=== PATIENT | female | born 1945 | race African-American/Black ===

== ENCOUNTER 2019-01-31 08:39 | Inpatient (IN) ==
[2019-01-30 09:46] LABS: URINE SOURCE VOIDED
[2019-01-30 09:51] LABS: BILIRUBIN URINE NEGATIVE (NEGATIVE); BLOOD URINE NEGATIVE (NEGATIVE); COLOR YELLOW; GLUCOSE URINE NEGATIVE (NEGATIVE); KETONE URINE NEGATIVE (NEGATIVE); LEUKOCYTES URINE MODERATE (NEGATIVE); NITRITE URINE NEGATIVE (NEGATIVE); PH URINE 5.5; PROTEIN URINE TRACE mg/dL (NEGATIVE); SP GRAVITY URINE 1.015; TURBIDITY URINE HAZY (CLEAR); UROBILINOGEN URINE NORMAL (NORMAL)
[2019-01-30 09:52] LABS: BASO# 0.01 X1000 (0.0-0.2); BASO% 0.2 % (0.0-0.8); EOS# 0.05 X1000 (0.0-0.7); EOS% 0.9 % (0.0-10.0); HEMATOCRIT 38.5 % (37.0-47.0); HEMOGLOBIN 12.5 g/dL (12.0-16.0); IMM GRAN# 0.02 X1000 (0.0-0.04); IMM GRAN% 0.4 % (0.0-0.5); LYMPH# 2.25 X1000 (1.2-3.4); LYMPH% 39.9 % (20.5-51.1); MCH 30.9 PG (27-31); MCHC 32.5 g/dL (33-37); MCV 95.3 FL (81-99); MONO# 0.32 X1000 (0.11-0.59); MONO% 5.7 % (1.7-9.3); MPV 9.8 FL (7.4-10.4); NEUT# 2.99 X1000 (1.4-6.5); NEUT% 52.9 % (42.2-75.2); PLT 209 X1000 (130-400); RBC 4.04 XMIL (4.2-5.4); RDW 15.5 % (11.5-14.5); WBC 5.64 X1000 (4.8-10.8)
[2019-01-30 09:53] LABS: UR EPITHELIAL CELLS <10 /HPF (<10); URINE BACTERIA 4+ /HPF; URINE RBC <10 /HPF (<10); URINE WBC TNTC /HPF (<10)
--- NOTE | 2019-01-30 10:03 | Diag Imaging Result Doc PS360 ---
EXAM: CHEST-2 VIEWS 01/30/2019 HISTORY: PAT TECHNIQUE: PA and lateral chest COMMENT: There is no evidence of acute cardiac or pulmonary disease. Compared to 10/14/2017 there has been no significant change in the appearance of the chest. IMPRESSION: No evidence of acute disease. Electronically signed by Alcon Chaney 01/30/2019 10:00 AM
[2019-01-30 10:40] LABS: AGAP 8; ALB/GLOB RATIO 1.2; ALKALINE PHOSPHATASE 112 U/L (32-104); BUN 6 mg/dL (8-22); CALCIUM 9.7 mg/dL (8.8-10.2); CHLORIDE 106 mmol/L (98-107); COSMO 282; CREATININE 0.7 mg/dL (0.5-0.9); ESTIMATED GFR > 60; GLUCOSE 152 mg/dL (70-104); GOT 20 U/L (10-30); GPT 27 U/L (10-36); POTASSIUM 4.3 mmol/L (3.5-5.1); SODIUM 141 mmol/L (136-145); TCO2 27 mmol/L (25-35); TOTAL BILIRUBIN 0.38 mg/dL (0.20-1.00); TOTAL PROTEIN 7.3 g/dL (6.3-8.3)
--- NOTE | 2019-01-30 11:08 | EKG Report ---
Test Performed on : 01/30/2019 09:25:27 AM Test Reason : PAT Blood Pressure : / mmHG Vent. Rate : 070 BPM Atrial Rate : 070 BPM P-R Int : 164 ms QRS Dur : 082 ms QT Int : 378 ms P-R-T Axes : 075 041 054 degrees QTc Int : 408 ms Sinus rhythm. with premature supraventricular complexes. Possible Left atrial enlargement Borderline ECG When compared with ECG of 29-JAN-2019 08:28, premature supraventricular complexes. are now present Confirmed by Corey DREW, Caio ([id number]) on 01/30/2019 6:06:05 PM
[2019-01-31] MEDS ORDERED: ENTEREG ONE (09:02)
[2019-01-31] MEDS ORDERED: MEFOXIN 1 GM/D5W 1 GM/50 ML IVPB ONE (09:03)
[2019-01-31] MEDS ORDERED: LR 1,000 ML ONE (09:04)
[2019-01-31] MEDS ORDERED: VALIUM ONE (09:08)
[2019-01-31] MEDS ORDERED: XYLOCAINE-MPF 2% ONE ×2 (09:29→09:32)
[2019-01-31] MEDS ORDERED: NORCURON ONE (09:29)
[2019-01-31] MEDS ORDERED: SODIUM CHLORIDE 0.9% 10 ML ONE (09:29)
[2019-01-31] MEDS ORDERED: QUELICIN (DOSE) ONE (09:30)
[2019-01-31] MEDS ORDERED: DIPRIVAN 1% ONE (09:30)
[2019-01-31] MEDS ORDERED: FENTANYL ONE (09:31)
[2019-01-31] MEDS ORDERED: FLAGYL 1000 MG/NS 1,000 MG/200 ML IVPB IV ONE (10:00)
[2019-01-31] MEDS ORDERED: ROBINUL ONE (11:50)
[2019-01-31 11:54] LABS: URINE SOURCE CATH
[2019-01-31] MEDS ORDERED: DECADRON ONE (11:55)
[2019-01-31] MEDS ORDERED: ZOFRAN ONE (11:55)
[2019-01-31] MEDS ORDERED: BRIDION ONE (11:59)
[2019-01-31] MEDS ORDERED: OFIRMEV 1000 MG/ISOTONIC SOLN 1,000 MG/100 ML BOTTLE ONE (12:00)
[2019-01-31 12:05] LABS: BILIRUBIN URINE NEGATIVE (NEGATIVE); BLOOD URINE NEGATIVE (NEGATIVE); COLOR STRAW; GLUCOSE URINE NEGATIVE (NEGATIVE); KETONE URINE NEGATIVE (NEGATIVE); LEUKOCYTES URINE NEGATIVE (NEGATIVE); NITRITE URINE NEGATIVE (NEGATIVE); PH URINE 6.5; PROTEIN URINE NEGATIVE (NEGATIVE); TURBIDITY URINE CLEAR (CLEAR); UROBILINOGEN URINE NORMAL (NORMAL)
[2019-01-31 12:06] LABS: UR EPITHELIAL CELLS <10 /HPF (<10); URINE BACTERIA NEGATIVE /HPF; URINE RBC <10 /HPF (<10); URINE WBC <10 /HPF (<10)
[2019-01-31] MEDS ORDERED: MORPHINE ONE (12:15)
[2019-01-31] MEDS: DILAUDID ONE ×2 (12:38→12:48)
[2019-01-31] MEDS ORDERED: D5 1/2 NS 1,000 ML ONE (12:40)
[2019-01-31] MEDS ORDERED: DILAUDID ONE (12:58)
--- NOTE | 2019-01-31 13:19 | OPERATIVE NOTE ---
PROCEDURE DATE: 01/31/2019 PREOPERATIVE DIAGNOSES: 1. Diabetes. 2. History of chronic recurrent urinary tract infections and patient described pneumaturia, possible colovesical fistula. PROCEDURES: 1. Initially, a cystoscopy with placement of bilateral ureteral catheters by Dr. Davis. 2. Exploratory laparotomy adhesiolysis with no findings of colovesical fistula. Some benign adhesions were taken down. The colon was run from the peritoneal reflection to the cecum without evidence of other pathology. DESCRIPTION OF PROCEDURE: The patient was initially brought to the operating room. After satisfactory induction of IV and endotracheal anesthesia, she was placed in the exenteration [facility]. Dr. Davis performed cystoscopy with placement of stents that will be covered in a separate operative note. Subsequent to this, the patient's abdomen was prepped and draped in the appropriate manner for a midline exploration. There was an old midline infraumbilical scar from hysterectomy. This was reopened from the subumbilical to pubis with hemostasis being achieved by electrocautery. The fascia was incised in the midline, and the peritoneum was entered. The viscera were packed superiorly. The colon was mobilized. There was no evidence of any communication to the dome of the bladder. The colon revealed scattered diverticulosis but no diverticulitis. A few benign adhesions were taken down of omentum to the abdominal wall from previous surgeries. The colon was run from the peritoneal reflection proximally to the splenic flexure across the transverse colon, and down to the cecum with no gross evidence of pathology or diverticulitis being seen. The small intestine was free in the belly. There is no evidence of Crohn's disease at the distal ileum. No other evidence of pathology was encountered. There were scattered granulomas in the liver. The gallbladder appeared to be without stones. Upon completion and after accounting for all laparotomy sponges, it was therefore decided to close the abdomen and not performed the sigmoid resection. The peritoneum was closed in a single running layer of #1 Vicryl. The fascia was closed with interrupted #1 Maxon. Subcutaneous was debrided and closed with 3-0 Vicryl, and the skin itself with stainless steel clips. Sterile dressings were applied. Singh catheter and ureteral catheters were removed. The patient was awakened and extubated in the operating room and transferred to recovery. Estimated Blood Loss was around 20 mL. Plan is for admission overnight and discharge on 02/01/2019. cc: Sid Fish MD
[2019-01-31] MEDS ORDERED: ZOFRAN IV PRN (16:11)
[2019-01-31] MEDS: MORPHINE IV PRN ×2 (16:23→20:27)
[2019-01-31] MEDS ORDERED: D5 1/2 NS 1,000 ML IV SCH (17:00)
--- NOTE | 2019-01-31 18:35 | OPERATIVE NOTE ---
PROCEDURE DATE: 01/31/2019 PREOPERATIVE DIAGNOSES: 1. Hematuria. 2. Recurrent urinary tract infections. 3. Rectal stricture. POSTOPERATIVE DIAGNOSES: 1. Hematuria. 2. Recurrent urinary tract infections. PROCEDURE PERFORMED: Cystoscopy with placement of bilateral externalized ureteral stents. SURGEON: Albaro Davis MD CAD CAM PROGRAMMER: None. COMPLICATIONS: None. BLOOD LOSS: None. SPECIMENS REMOVED: None INDICATIONS FOR PROCEDURE: Ms. Nash is a 73-year-old who initially presented as a consult for an emphysematous cystitis, has been followed up in the outpatient setting with two prior cystoscopies, which have shown no evidence of any fistula between the bladder and colonic structures. She has had recurrence of urinary tract infections with pneumaturia. The patient has had a cystogram as well as CT scans, which showed no evidence of this fistula. The patient was referred to GI surgery for evaluation. Dr. Fish performed a colonoscopy on Sunday with concerns for a stricture within the colon. The decision was made to proceed to likely sigmoidectomy due to diverticular disease and stricture. Dr. Fish asked if I could place bilateral externalized ureteral stents for the procedure. This was discussed with the patient and her daughter, and they elected to proceed. All risks, benefits and alternatives of procedure were discussed with the patient. DESCRIPTION OF PROCEDURE: After informed consent was obtained, the patient was brought to the operating room, placed on the table in the supine position, underwent general anesthesia and received preoperative antibiotics per General Surgery. She was then placed into a dorsal supine position and was prepped and draped in usual sterile fashion. A preoperative time-out was performed for my portion of the procedure. All parties were in agreement, including anesthesia, surgical and nursing staffs. At which time I inserted a 21-Wallisian cystourethroscope showing a normal- caliber urethra and no evidence of any lesions within the bladder. The entirety of the bladder was inspected with normal mucosa. No evidence of any sediment. Bilateral ureteral orifices visualized with narrow ureteral orifices bilaterally. Clear efflux of urine was seen. A ZIPwire was then passed through the scope and passed into the left ureteral orifice and the open-ended catheter was then inserted over pravin wire to approximately 24 cm at the ureteral orifice. The scope was then slowly withdrawn and then reinserted. A wire was then placed through the scope and into the right ureteral orifice and open ureteral catheter was passed to approximately 24 cm. The patient's bladder was left full and a 16-Wallisian Singh catheter was inserted, and both externalized ureteral stents were then passed through the catheter using 14 gauge IV to allow for drainage into the drainage catheter back. Each of the ureteral catheters was tied to the Singh catheter individually and then as 1 unit with a silk 2-0 tie. At this point, the patient's Singh catheter was placed to gravity drainage, and my portion of the procedure was terminated and the procedure was handed over to Dr. Fish who completed his portion. Please see fully dictated operative note by see details of his procedure. . cc: MD Sid Valladares MD MTDKacie
[2019-01-31] MEDS: GLUCOPHAGE PO SCH (20:25)
[2019-01-31] MEDS: NEURONTIN PO SCH (20:26)
[2019-01-31] MEDS: GLUCOTROL PO SCH (20:26)
[2019-01-31] MEDS ORDERED: ZOCOR PO SCH (21:00)
[2019-02-01] MEDS: MORPHINE IV PRN (01:27)
[2019-02-01] MEDS: PERIDEX MT SCH ×2 (01:45→10:19)
[2019-02-01 07:20] VITALS: BP 169/66
[2019-02-01] MEDS ORDERED: PRINZIDE 20/12.5MG PO SCH (09:00)
[2019-02-01] MEDS ORDERED: ALDACTONE PO SCH (09:00)
[2019-02-01] MEDS ORDERED: ENTEREG PO SCH (09:00)
[2019-02-01] MEDS ORDERED: NORVASC PO SCH (09:00)
[2019-02-01] MEDS: GLUCOTROL PO SCH (10:18)
[2019-02-01] MEDS: NEURONTIN PO SCH (10:18)
[2019-02-01] MEDS: GLUCOPHAGE PO SCH (10:18)
--- NOTE | 2019-02-01 13:05 | PROGRESS NOTE ---
DATE: 02/01/2019 SUBJECTIVE: Postop day 1 from cystoscopy and externalized stent placement by Urology, and exploratory laparotomy by Dr. Fish. The patient clinically is doing well. She states her pain is relatively well controlled. The patient has been able to urinate, had a small amount of pinkish urine overnight, but her urine this morning is clear, yellow. She denies any dysuria, urgency or frequency, and feels like she is emptying adequately. OBJECTIVE: Vitals: Temperature 98.0 degrees, heart rate 62, blood pressure 169/66, oxygen saturation 90% on room air. General: In no acute distress, resting comfortably in the chair, alert and oriented x3. Abdomen: Soft mild tenderness, nondistended. : No suprapubic tenderness. No CVA tenderness. Musculoskeletal: Moving all extremities. Neurologic: Gross motor and sensory intact. ASSESSMENT AND PLAN: Ms. Nash is a 73-year-old, who has a history of pneumaturia and recurrent Klebsiella urinary tract infections. The patient was referred to General Surgery for evaluation for possible colovesicular fistula. She underwent colonoscopy earlier this week, which showed concern from a rectal stricture. She was taken to the operating yesterday for possible exploratory laparotomy and sigmoidectomy. Dr. Fish desired preoperative cystoscopy, and externalized stent was performed yesterday, and the patient tolerated this well. Her stents and catheter were removed yesterday and she has been voiding spontaneously. No abnormalities were seen on exploratory laparotomy yesterday. She denies any dysuria, urgency, or frequency, and seems to be emptying her bladder well. We will plan for her followup in Urology Clinic in 1 to 2 weeks and discuss prophylactic antibiotics to decrease the frequency of recurrent urinary tract infections. This was relayed to the patient prior to discharge. cc: MD Sid Valladares MD MTDD
== END 2019-02-01 11:29 | disposition home or self-care (01) | DRG 941 ==
LOC: SURHOLD 08:39 → 4N 14:28
PROVIDERS: ADMIT Surgery; ATTEND Surgery
CPT/HCPCS: 71020; 71046; 80053; 81001; 82948; 85025; 86850; 86900; 86901; 93005; 93010; 94761; 94799; A9270; J0131; J0330; J0694; J1100; J1170; J2270; J2405; J3010; J7120; S0030; XXXXX